=== PATIENT | male | born 1985 | race Asian ===

== ENCOUNTER 2019-07-11 10:59 | Emergency (ER) | payer OTHER ==
[~2019-07-11] VITALS: Ht 172.7 cm; Wt 80.5 kg
[2019-07-11 11:05] VITALS: Ht 172.7 cm; Wt 80.5 kg
[2019-07-11 14:28] LABS: CALCIUM 8.7 mg/dL (8.5-10.1); CARBON DIOXIDE 30.6 mmol/L (21-32); CHLORIDE SERUM 106 mmol/L (98-107); CREATININE SERUM 1.2 mg/dL (0.7-1.3); GFR1 > 60 mL/min; GLUCOSE SERUM 97 mg/dL (74-106); POTASSIUM SERUM 4.4 mmol/L (3.5-5.1); SODIUM SERUM 144 mmol/L (136-145)
[2019-07-11 14:29] LABS: BASOPHIL % 0.4 % (0-2); PLATELET COUNT 247 x10^3mcL (130-400)
[2019-07-11 14:31] LABS: ALKALINE PHOSPHATASE 39 U/L (46-116); ALT/SGPT 46 U/L (16-63); AST/SGOT 17 U/L (15-37); BILIRUBIN TOTAL 0.5 mg/dL (0.20-1.00); LIPASE 194 IU/L (73-393); RED CELL DISTRIBUTION WIDTH 14.8 % (11.5-14.5); TOTAL PROTEIN, SERUM 7.8 g/dL (6.4-8.2)
[2019-07-11 14:40] LABS: T3 TOTAL 0.75 ng/mL
[2019-07-11 14:48] LABS: CHOLESTEROL 268 mg/dL (<200); CHOLESTEROL/HDL RATIO 8.1; HDL CHOLESTEROL 33 mg/dL (40-60); TRIGLYCERIDES 384 mg/dL (<150)
[2019-07-11 15:29] LABS: FREE T4 0.86 ng/dL (0.76-1.46); FREE THYROXINE INDEX 2.9 ug/dL (1.4-4.5); T4(THYROXINE) 8.3 ug/dL (4.7-13.3)
[2019-07-11 15:42] VITALS: BP 130/78
== END 2019-07-11 15:42 | disposition home or self-care (01) ==
LOC: ED 10:59
PROVIDERS: Specialist
DX: R07.89 Other chest pain (principal); F17.200 Nicotine dependence, unspecified, uncomplicated
CPT/HCPCS: 36415; 83880; 84439; 99406; J1885; Q0092